=== PATIENT | female | born 1995 | race Two or more races ===

== ENCOUNTER 2023-07-20 14:41 | Emergency (ER) | payer OTHER ==
[~2023-07-20] VITALS: Ht 149.9 cm; Wt 54.4 kg
[2023-07-20] MEDS ORDERED: FAMOTIDINE/PF 20 MG in 0.9 % SODIUM CHLORIDE 8 ML IV PUSH STA (16:18)
[2023-07-20] MEDS ORDERED: KETOROLAC TROMETHAMINE 30 MG VIAL IV ONE (16:30)
[2023-07-20] MEDS ORDERED: ONDANSETRON HCL 2 MG/ML VIAL IV ONE (16:30)
[2023-07-20] MEDS ORDERED: 0.9 % SODIUM CHLORIDE 1,000 ML IV SCH (16:30)
[2023-07-20 17:27] LABS: HEMOGLOBIN 11.8 g/dL (12.0-15.00); MEAN CELL VOLUME 81.9 fL (80.00-100.00); MEAN CORPUSCULAR HEMOGLOBIN 27.7 pg (27.00-32.0); MEAN CORPUSCULAR HGB CONC 33.8 g/dl (32.0-36.0); PLATELET COUNT 283 K/uL (150-450); RED BLOOD COUNT 4.27 M/uL (4.00-6.00); RED CELL DISTRIBUTION WIDTH 17.1 % (11.5-14.5)
[2023-07-20 17:58] LABS: ALBUMIN 3.7 gm/dL (3.4-5.0); BILIRUBIN TOTAL 0.61 mg/dL (0.3-1.2); CALCIUM 9.4 mg/dL (8.5-10.1); CREATININE SERUM 0.8 mg/dL (0.55-1.02); GFR 86.04; GLOBULINA 4.5 G/DL (2.4-3.5); POTASSIUM 3.49 mEq/L (3.5-5.1); TOTAL PROTEIN 8.2 gm/dL (6.4-8.2)
[2023-07-20] MEDS ORDERED: METOCLOPRAMIDE HCL 10 MG in DEXTROSE 5 % IN WATER 50 ML IV ONE (18:45)
[2023-07-20] MEDS ORDERED: METHYLPREDNISOLONE SOD SUCC 125 MG VIAL IV ONE (18:45)
[2023-07-20] MEDS ORDERED: PEPCID AC20 MG PO (19:39)
[2023-07-20] MEDS ORDERED: CARAFATE1 GM PO (19:39)
[2023-07-20] MEDS ORDERED: SUCRALFATE 1 G TABLET PO ONE (20:00)
[2023-07-20] MEDS ORDERED: MAG HYDROX/ALUMINUM HYD/SIMETH 30 ML BLIST.PACK PO ONE (20:00)
[2023-07-20] MEDS ORDERED: PROMETHAZINE HCL 50 MG/ML AMPUL IM ONE (20:00)
[2023-07-20] MEDS ORDERED: LIDOCAINE HCL 20 MG/ML BLIST.PACK MM ONE (20:00)
== END 2023-07-20 20:53 | disposition home or self-care (01) ==
LOC: ER 14:42
PROVIDERS: General Practice
DX: R11.2 Nausea with vomiting, unspecified (principal); K29.70 Gastritis, unspecified, without bleeding